=== PATIENT | female | born 1985 | race Two or more races ===

== ENCOUNTER 2022-10-17 01:50 | Emergency (ER) | payer MEDICAID ==
[~2022-10-17] VITALS: Ht 160 cm; Wt 77.1 kg
[2022-10-17 02:31] VITALS: BP 112/72; TEMP 97.9; O2SAT 100
== END 2022-10-17 02:32 | disposition home or self-care (01) ==
LOC: ER 01:53
DX: R18.8 Other ascites (principal); R14.0 Abdominal distension (gaseous)
CPT/HCPCS: A4663